=== PATIENT | female | born 1995 | race African-American/Black ===

== ENCOUNTER 2022-08-22 13:27 | Emergency (ER) | payer MEDICAID ==
[~2022-08-22] VITALS: Ht 175.3 cm; Wt 132.0 kg
[2022-08-22] MEDS ORDERED: IBUPROFEN 600MG TABLET PO ONE (15:45)
[2022-08-22] MEDS ORDERED: IBUP-2029 MT (17:31)
[2022-08-22 17:47] VITALS: BP 139/85
== END 2022-08-22 17:58 | disposition home or self-care (01) ==
LOC: ER 13:27
DX: S00.83XA Contusion of other part of head, initial encounter (principal); V49.49XA Driver injured in collision with other motor vehicles in traffic accident, initial encounter; Y93.89 Activity, other specified; Y92.89 Other specified places as the place of occurrence of the external cause; Y99.8 Other external cause status; M25.562 Pain in left knee; M25.561 Pain in right knee; M79.604 Pain in right leg; M79.605 Pain in left leg
CPT/HCPCS: 70486; 73564; 73590; 81025; 99284